=== PATIENT | female | born 1970 | race Hispanic/Latino ===

== ENCOUNTER 2021-03-16 20:54 | Emergency (ER) | payer SELFPAY ==
[~2021-03-16] VITALS: Ht 162.6 cm; Wt 84.4 kg
[2021-03-16] MEDS ORDERED: HYDROCHLOROTHIA25 MG PO (21:39)
== END 2021-03-16 22:00 | disposition home or self-care (01) ==
LOC: FSED 21:01
DX: I10 Essential (primary) hypertension (principal); R42 Dizziness and giddiness
CPT/HCPCS: 99282